=== PATIENT | female | born 1995 | race Caucasian/White ===

== ENCOUNTER 2018-12-12 01:16 | Emergency (ER) | payer SELFPAY ==
[2018-12-12] MEDS ORDERED: HYDROcodone/Acetaminophen 5/325 mg Tablet ONE (01:27)
--- NOTE | 2018-12-12 07:46 | RAD ---
Exam: XR Foot Rt 3 View STANDARD HISTORY: Right lower extremity pain. Patient was walking and fell off a step and heard a pop. Right foot pain. COMPARISON: None FINDINGS: There is a lucency seen at the base of the right fifth metatarsal with overlying subcutaneous soft ti ssue swelling suggesting a slightly fracture base of the right fifth metatarsal. The Lisfranc joint is normally aligned. No additional acute fracture, dislocation, or other acute osseous abnormality is identified. IMPRESSION: Fracture base of the right fifth metatarsal with overlying subcutaneous soft tissue swelling.
--- NOTE | 2018-12-12 07:48 | RAD ---
Exam: XR Ankle Rt 3 View STANDARD HISTORY: Right lower extremity pain. Patient was walking and fell off a step and heard a pop. COMPARISON: None FINDINGS: There is an transverse fracture involving the proximal base of the right fifth metatarsal with adjace nt subcutaneous soft tissue swelling. The ankle mortise is congruent. No additional acute fracture, dislocation, or other acute osseous abnormality is identified. IMPRESSION: Mildly fracture base of the right fifth metatarsal.
== END 2018-12-12 02:24 | disposition home or self-care (01) ==
LOC: ERS 01:16
DX: S92.351A Displaced fracture of fifth metatarsal bone, right foot, initial encounter for closed fracture (principal); F32.9 Major depressive disorder, single episode, unspecified; W22.8XXA Striking against or struck by other objects, initial encounter

== ENCOUNTER 2019-01-20 20:35 | Emergency (ER) | payer SELFPAY | END 2019-01-20 21:05 | disposition home or self-care (01) | LOC: ERS 20:35 | DX: K08.89 Other specified disorders of teeth and supporting structures (principal); F32.9 Major depressive disorder, single episode, unspecified; Z71.6 Tobacco abuse counseling | CPT/HCPCS: 99406 ==

== ENCOUNTER 2019-02-03 09:06 | Emergency (ER) | payer SELFPAY | END 2019-02-03 09:30 | disposition left against medical advice (07) | LOC: ERS 09:06 | DX: Z53.21 Procedure and treatment not carried out due to patient leaving prior to being seen by health care provider (principal) ==

== ENCOUNTER 2019-06-23 00:50 | Emergency (ER) | payer SELFPAY ==
[2019-06-23] MEDS ORDERED: Ketorolac Tromethamine 30 MG/ML VIAL ONE (04:36)
[2019-06-23] MEDS ORDERED: Dexamethasone 10 MG/ML VIAL ONE (04:56)
== END 2019-06-23 06:13 | disposition home or self-care (01) ==
LOC: ERS 00:50
DX: J02.0 Streptococcal pharyngitis (principal); F41.9 Anxiety disorder, unspecified; F32.9 Major depressive disorder, single episode, unspecified; F17.290 Nicotine dependence, other tobacco product, uncomplicated
CPT/HCPCS: 87430; 87804; 96372; 99283; J1100; J1885

== ENCOUNTER 2019-07-07 22:12 | Emergency (ER) | payer OTHER, SELFPAY ==
--- NOTE | 2019-07-07 22:57 | RAD ---
XR Wrist 3 Rt View STANDARD: 07/07/2019 10:35 PM CLINICAL INDICATION: Right wrist pain and injury COMPARISON: None. FINDINGS: Bones: There is a mildly angulated, mildly displaced small finger metacarpal neck-distal shaft fract ure. The distal fracture fragment is displaced palmarly one half shaft width with palmar angulation. Joints: Joints space is preserved.. Soft Tissue: Normal.. IMPRESSION: Small finger metacarpal fracture.
--- NOTE | 2019-07-07 22:58 | RAD ---
XR Hand Rt 3 View STANDARD: 07/07/2019 10:35 PM CLINICAL INDICATION: Right hand injury and pain COMPARISON: None. FINDINGS: Bones: There is an obliquely running fracture involving the small finger metacarpal neck with palmar angulation. The distal fracture fragment is displaced palmarly one half shaft width. There is soft tissue swelling surrounding the fracture site. No additional acute fracture seen involving the right hand. Joints: Joint spaces are preserved. Soft Tissue: Soft tissue swelling surrounding the fracture site IMPRESSION: Small finger metacarpal neck fracture.
[2019-07-07] MEDS ORDERED: HYDROcodone/Acetaminophen 5/325 mg Tablet ONE (23:50)
[2019-07-07] MEDS ORDERED: Bicillin LA 1.2 MILLION UNITS/2 ML SYRINGE ONE (23:51)
== END 2019-07-08 00:22 | disposition home or self-care (01) ==
LOC: ERS 22:12
DX: S62.336A Displaced fracture of neck of fifth metacarpal bone, right hand, initial encounter for closed fracture (principal); J02.0 Streptococcal pharyngitis; F41.9 Anxiety disorder, unspecified; F32.9 Major depressive disorder, single episode, unspecified; F17.290 Nicotine dependence, other tobacco product, uncomplicated; Z79.899 Other long term (current) drug therapy; X58.XXXA Exposure to other specified factors, initial encounter
CPT/HCPCS: 26600; 87430; 96372; J0561

== ENCOUNTER 2019-11-01 21:26 | Emergency (ER) | payer SELFPAY ==
[2019-11-01] MEDS ORDERED: Adacel (T-DAP) 0.5 ML SYRINGE ONE (22:25)
[2019-11-01] MEDS ORDERED: HYDROcodone/Acetaminophen 5/325 mg Tablet ONE (22:25)
[2019-11-01] MEDS ORDERED: Ondansetron ODT 4 MG TAB ONE (23:40)
[2019-11-01] MEDS ORDERED: Bacitracin 1 PK ONE (23:40)
--- NOTE | 2019-11-02 00:22 | RAD ---
Exam: XR Finger(s) Rt Min 2 View HISTORY: Trauma. COMPARISON: None FINDINGS: There is evidence of a remote healed fracture involving the metacarpal right small finger. No acute fracture, dislocation, or other acute osseous abnormality is identified. IMPRESSION: No acute osseous abnormality is identified. Remote healed fracture metacarpal right small finger.
== END 2019-11-01 23:47 | disposition home or self-care (01) ==
LOC: ERS 21:26
DX: S61.316A Laceration without foreign body of right little finger with damage to nail, initial encounter (principal); F41.9 Anxiety disorder, unspecified; F32.9 Major depressive disorder, single episode, unspecified; J45.909 Unspecified asthma, uncomplicated; W22.8XXA Striking against or struck by other objects, initial encounter
CPT/HCPCS: 90471; 90715; Q0162

== ENCOUNTER 2019-11-28 12:19 | Emergency (ER) | payer SELFPAY ==
[2019-11-28] MEDS ORDERED: Ondansetron PF 4 MG/2 ML Vial ONE (12:55)
[2019-11-28] MEDS ORDERED: Morphine 4 MG/ML VIAL ONE (12:55)
[2019-11-28 13:07] LABS: #Basophils 0.1 thou/uL (0.0-0.2); #Eosinphils 0.1 thou/uL (0.0-0.7); #Lymphocytes 2.3 thou/uL (1.20-3.40); #Monocytes 0.5 thou/uL (0.11-0.59); #Neutrophils 5.6 thou/uL (1.40-6.50); %Basophils 0.8 % (0.0-1.0); %Eosinophils 0.8 % (0.0-10.0); %Lymphocytes 26.3 % (21.0-51.0); %Monocytes 6.3 % (0.0-10.0); %Neutrophils 65.7 % (42.0-75.0); Hemoglobin 14.3 g/dL (12.0-16.0); Mean Corpuscular HGB CONC 33.4 g/dL (32.0-36.0); Mean Corpuscular Hemoglobin 29.3 pg (27.0-31.0); Mean Corpuscular Volume 87.6 fL (78.0-98.0); Mean Platelet Volume 7.8 fL (7.4-10.4); Platelet Count 311 thou/uL (130-400); White Blood Cell (WBC) Count 8.6 thou/uL (4.8-10.8)
[2019-11-28 13:12] LABS: BHCG - Serum Negative (NEGATIVE); Pregs Control Background? CLEAR/WHITE (CLR/WHITE); Pregs Control Bar Appear? YES (CONTROL BAR)
[2019-11-28 13:28] LABS: Bacteria/HPF None Seen HPF (None Seen); Bilirubin Negative (Negative); Blood, Urine 3+ (Negative); Clarity Clear (Clear); Glucose, Urine (Dipstick) Normal (Negative); Ketone, Urine Negative (Negative); Leukocyte Negative Leu/uL (Negative); Nitrite Negative (Negative); Protein, Urine (Dipstick) 20 mg/dL (Neg-Trace); RBC/HPF 21-50 HPF (0-3); Squamous Epithelial 0-3 HPF (0-3); Urobilinogen Normal mg/dL (Less than 2); WBC/HPF 0-3 HPF (0-3)
--- NOTE | 2019-11-28 13:54 | ULT ---
ULTRASOUND PELVIC ULTRASOUND TRANSVAGINAL DOPPLER DUPLEX: DATE: 11/28/2019 HISTORY: 24-year-old female with pelvic pain TECHNIQUE: Transabdominal transducer and endovaginal transducer used to visualize intrapelvic contents with bee scale, color-flow, and spectral analysis. FINDINGS: Uterus: 9 x 4 x 6 cm Endometrial stripe:0.8 cm (8 mm). Right ovary: 3.5 x 2 x 2 cm Left ovary:1.5 x 2 x 1 cm. Uterine leiomyoma (fibroid):2 x 1.5 x 1 cm subserosal hypoechoic lesion left posterior uterine corpus . Blood flow in ovaries:Bilaterally demonstrated Ovarian cyst:None Free fluid in the cul-de-sac:None IMPRESSION: 1) small uterine fibroid. 2) otherwise negative
[2019-11-28] MEDS ORDERED: Ketorolac Tromethamine 30 MG/ML VIAL ONE (14:09)
[2019-11-28 14:25] LABS: ALT (SGPT) 34 U/L (8-55); AST (SGOT) 27 U/L (5-34); Albumin 4.4 g/dL (3.5-5.0); Alkaline Phosphatase 70 U/L (40-110); Anion Gap 14 mmol/L (10-20); BUN (Urea Nitrogen) 13 mg/dL (7.0-18.7); Bilirubin, Total 0.5 mg/dL (0.2-1.2); Calc. Creatinine Clearance 0 mL/min (70-130); Calcium 9.1 mg/dL (7.8-10.44); Carbon Dioxide 20 mmol/L (22-29); Chloride 109 mmol/L (98-107); Estimated GFR-MDRD 89; Glucose 71 mg/dL (70-105); Potassium 4.1 mmol/L (3.5-5.1); Protein, Total 7.4 g/dL (6.0-8.3); Sodium 139 mmol/L (136-145)
--- NOTE | 2019-11-28 14:47 | CT ---
CT of abdomen and pelvis: 11/28/2019 COMPARISON: None HISTORY: Lower abdominal pain TECHNIQUE: Axial CT imaging at 5 mm intervals from lung bases through pubic symphysis without contras t. Coronal reformatted imaging obtained. FINDINGS: Lack of contrast media limits assessment of the viscera, bowel, vascular structures, and fo r lymphadenopathy. The imaged lung bases are unremarkable. No free intraperitoneal air or fluid. The spleen, liver, gall bladder, pancreas, and adrenal glands appear unremarkable. No nephrolithiasis or evidence of obstructive uropathy appreciated on either side. No evidence for bowel inflammatory change or obstruc tion. The appendix appears unremarkable. No acute osseous abnormality. IMPRESSION: No nephrolithiasis or evidence of obstructive uropathy.
== END 2019-11-28 17:14 | disposition home or self-care (01) ==
LOC: ERS 12:19
DX: D25.9 Leiomyoma of uterus, unspecified (principal); E28.2 Polycystic ovarian syndrome; J45.909 Unspecified asthma, uncomplicated; F41.9 Anxiety disorder, unspecified; F32.9 Major depressive disorder, single episode, unspecified; F17.200 Nicotine dependence, unspecified, uncomplicated; Z79.899 Other long term (current) drug therapy
CPT/HCPCS: 36415; 74176; 76856; 80053; 81003; 81015; 84703; 85025; 96374; 96375; J1885; J2270; J2405

== ENCOUNTER 2020-01-06 10:00 | Emergency (ER) | payer SELFPAY | END 2020-01-06 10:56 | disposition home or self-care (01) | LOC: ERS 10:00 | DX: Z20.7 Contact with and (suspected) exposure to pediculosis, acariasis and other infestations (principal); J45.909 Unspecified asthma, uncomplicated; F41.9 Anxiety disorder, unspecified; F32.9 Major depressive disorder, single episode, unspecified; F17.200 Nicotine dependence, unspecified, uncomplicated; Z79.899 Other long term (current) drug therapy | CPT/HCPCS: 99406 ==

== ENCOUNTER 2020-01-13 10:28 | Emergency (ER) | payer SELFPAY | END 2020-01-13 13:04 | disposition home or self-care (01) | LOC: ERS 10:28 | DX: Z20.7 Contact with and (suspected) exposure to pediculosis, acariasis and other infestations (principal); F41.9 Anxiety disorder, unspecified; F32.9 Major depressive disorder, single episode, unspecified; J45.909 Unspecified asthma, uncomplicated; F17.200 Nicotine dependence, unspecified, uncomplicated; Z79.899 Other long term (current) drug therapy | CPT/HCPCS: 99281 ==

== ENCOUNTER 2020-03-23 18:40 | Emergency (ER) | payer SELFPAY ==
[2020-03-23 20:11] LABS: #Eosinphils 0.2 thou/uL (0.0-0.7); #Lymphocytes 2.4 thou/uL (1.20-3.40); #Monocytes 0.6 thou/uL (0.11-0.59); %Basophils 0.4 % (0.0-1.0); %Eosinophils 1.8 % (0.0-10.0); %Lymphocytes 23.4 % (21.0-51.0); %Monocytes 5.7 % (0.0-10.0); %Neutrophils 68.7 % (42.0-75.0); Hemoglobin 13.9 g/dL (12.0-16.0); Mean Corpuscular HGB CONC 32.3 g/dL (32.0-36.0); Mean Corpuscular Hemoglobin 28.1 pg (27.0-31.0); Mean Platelet Volume 7.2 fL (7.4-10.4); Platelet Count 392 thou/uL (130-400); RBC Distribution Width 11.7 % (11.5-14.5); Red Blood Cell (RBC) Count 4.94 mill/uL (4.20-5.40); White Blood Cell (WBC) Count 10.2 thou/uL (4.8-10.8)
[2020-03-23 20:32] LABS: Anion Gap 14 mmol/L (10-20); BUN (Urea Nitrogen) 16 mg/dL (7.0-18.7); Calc. Creatinine Clearance 0 mL/min (70-130); Calcium 9.5 mg/dL (7.8-10.44); Carbon Dioxide 26 mmol/L (22-29); Chloride 106 mmol/L (98-107); Estimated GFR-MDRD 88; Glucose 71 mg/dL (70-105); Potassium 3.9 mmol/L (3.5-5.1); Sodium 142 mmol/L (136-145)
--- NOTE | 2020-03-23 20:33 | RAD ---
RADIOGRAPH CHEST 1 VIEW: DATE: 03-23-2020 HISTORY: 24-year-old female with dyspnea, cough, and chest pain with chest congestion. FINDINGS: The visualized lung garcia are clear. The cardiomediastinal silhouette and hilar shadows are normal. The lateral costophrenic angles are sharp. The osseous structures appear normal. There is no pneu mothorax. IMPRESSION: Negative. [email or web address] POS: [id number]
[2020-03-24 07:39] LABS: SARS-CoV-2 MS2 Positive; SARS-CoV-2 N Gene Negative; SARS-CoV-2 S Gene Negative; SARS-CoV-2 by NAA Not Detected (NotDetected); SARS-CoV-2 orf1ab Negative
== END 2020-03-23 21:19 | disposition home or self-care (01) ==
LOC: ERS 18:40
DX: J06.9 Acute upper respiratory infection, unspecified (principal); N93.9 Abnormal uterine and vaginal bleeding, unspecified; Z20.828 Contact with and (suspected) exposure to other viral communicable diseases; J45.909 Unspecified asthma, uncomplicated; F32.9 Major depressive disorder, single episode, unspecified; F41.9 Anxiety disorder, unspecified; F17.200 Nicotine dependence, unspecified, uncomplicated
CPT/HCPCS: 36415; 71045; 80048; 85025; 87635; 87804; U0003

== ENCOUNTER 2020-05-11 06:21 | Emergency (ER) | payer SELFPAY ==
[2020-05-11 06:52] LABS: Bacteria/HPF None Seen HPF (None Seen); Bilirubin Negative (Negative); Blood, Urine Trace (Negative); Clarity Turbid (Clear); Glucose, Urine (Dipstick) Normal (Negative); Ketone, Urine Negative (Negative); Leukocyte 500 Leu/uL (Negative); Nitrite Negative (Negative); Protein, Urine (Dipstick) 10 mg/dL (Neg-Trace); RBC/HPF 0-3 HPF (0-3); Specific Gravity, Urine 1.019 (1.002-1.036); Squamous Epithelial 0-3 HPF (0-3); Urobilinogen Normal mg/dL (Less than 2); WBC/HPF Greater than 50 HPF (0-3)
[2020-05-11 06:54] LABS: Pregnancy Test - Urine (BHCG) Negative (Negative); Pregu Control Background? CLEAR/WHITE (CLR/WHITE); Pregu Control Bar Appear? YES (CONTROL BAR); Specific Gravity 1.019 (1.002-1.036)
== END 2020-05-11 09:28 | disposition home or self-care (01) ==
LOC: ERS 06:21
DX: N39.0 Urinary tract infection, site not specified (principal); J45.909 Unspecified asthma, uncomplicated; F17.210 Nicotine dependence, cigarettes, uncomplicated
CPT/HCPCS: 81003; 81015; 81025; 99283

== ENCOUNTER 2020-05-26 20:47 | Emergency (ER) | payer SELFPAY ==
[2020-05-26] MEDS ORDERED: Ketorolac Tromethamine 30 MG/ML VIAL ONE (21:11)
[2020-05-26 21:23] LABS: Bacteria/HPF None Seen HPF (None Seen); Bilirubin Negative (Negative); Blood, Urine Trace (Negative); Clarity Clear (Clear); Glucose, Urine (Dipstick) Normal (Negative); Ketone, Urine Negative (Negative); Leukocyte Negative Leu/uL (Negative); Nitrite Negative (Negative); Protein, Urine (Dipstick) Negative (Neg-Trace); RBC/HPF 0-3 HPF (0-3); Specific Gravity, Urine 1.024 (1.002-1.036); Squamous Epithelial 0-3 HPF (0-3); Urobilinogen Normal mg/dL (Less than 2); WBC/HPF 0-3 HPF (0-3)
[2020-05-26 21:24] LABS: Pregnancy Test - Urine (BHCG) Negative (Negative); Pregu Control Background? CLEAR/WHITE (CLR/WHITE); Pregu Control Bar Appear? YES (CONTROL BAR); Specific Gravity 1.024 (1.002-1.036)
--- NOTE | 2020-05-26 21:27 | RAD ---
RIGHT FOOT: 05/26/20 Three views. HISTORY: Injury with pain. Comparison made to right foot films of 12/12/18. Fracture at the base of the fifth metatarsal was noted on that exam. FINDINGS: Tarsals appear intact. The metatarsals are intact. Old fracture involving base of fifth metatarsal is noted. No acute fracture identified. IMPRESSION: No acute findings. POS: AGW
--- NOTE | 2020-05-27 07:09 | ULT ---
PELVIC ULTRASOUND: Date: 05/26/2020 INDICATION: Pelvic pain. Vaginal bleeding. FINDINGS: Uterus has a normal sonographic appearance. Endometrial stripe is within normal range, measured at 4. 0 mm. Both ovaries are identified and appear unremarkable. Color Doppler and spectral analysis demons trates blood flow to both ovaries. No free fluid. IMPRESSION: Unremarkable pelvic ultrasound. POS: AGW
== END 2020-05-26 22:25 | disposition home or self-care (01) ==
LOC: ERS 20:47
DX: N80.9 Endometriosis, unspecified (principal); S80.11XA Contusion of right lower leg, initial encounter; J45.909 Unspecified asthma, uncomplicated; F17.210 Nicotine dependence, cigarettes, uncomplicated; W10.9XXA Fall (on) (from) unspecified stairs and steps, initial encounter
CPT/HCPCS: 76856; 81003; 81015; 81025; 93976; 96372; J1885

== ENCOUNTER 2020-06-24 17:19 | Emergency (ER) | payer SELFPAY ==
[2020-06-24 18:23] LABS: Bilirubin Negative (Negative); Blood, Urine Negative (Negative); Clarity Clear (Clear); Glucose, Urine (Dipstick) Normal (Negative); Ketone, Urine Negative (Negative); Leukocyte Negative Leu/uL (Negative); Nitrite Negative (Negative); Protein, Urine (Dipstick) Negative (Neg-Trace); Specific Gravity, Urine 1.022 (1.002-1.036); Urobilinogen Normal mg/dL (Less than 2)
== END 2020-06-24 19:05 | disposition home or self-care (01) ==
LOC: ERS 17:19
DX: M54.5 Low back pain (principal); J45.909 Unspecified asthma, uncomplicated; F17.290 Nicotine dependence, other tobacco product, uncomplicated
CPT/HCPCS: 81003; 99283

== ENCOUNTER 2020-09-15 21:09 | Emergency (ER) | payer MEDICAID, SELFPAY | END 2020-09-15 22:00 | disposition home or self-care (01) | LOC: ERS 21:09 | DX: B07.0 Plantar wart (principal); J45.909 Unspecified asthma, uncomplicated; F17.290 Nicotine dependence, other tobacco product, uncomplicated | CPT/HCPCS: 99283 ==

== ENCOUNTER 2020-10-07 21:13 | Emergency (ER) | payer OTHER | END 2020-10-08 01:42 | disposition home or self-care (01) | LOC: ERS 21:13 | DX: O9A.212 Injury, poisoning and certain other consequences of external causes complicating pregnancy, second trimester (principal); S90.31XA Contusion of right foot, initial encounter; O99.332 Smoking (tobacco) complicating pregnancy, second trimester; F17.290 Nicotine dependence, other tobacco product, uncomplicated; V89.2XXA Person injured in unspecified motor-vehicle accident, traffic, initial encounter | CPT/HCPCS: 36415; 86900; 86901 ==

== ENCOUNTER 2020-10-13 07:46 | Outpatient (CLI) | payer OTHER | END 2020-10-13 07:47 | disposition home or self-care (01) | LOC: BICULT 07:46 | PROVIDERS: ATTEND Family Medicine | DX: O09.892 Supervision of other high risk pregnancies, second trimester (principal); Z3A.20 20 weeks gestation of pregnancy | CPT/HCPCS: 76805 ==

== ENCOUNTER 2020-10-24 21:31 | Emergency (ER) | payer OTHER ==
[2020-10-25 00:48] LABS: SARS-CoV-2 NAA Rapid Test Not Detected (NotDetected)
== END 2020-10-25 01:09 | disposition home or self-care (01) ==
LOC: ERS 21:31
DX: O99.891 Other specified diseases and conditions complicating pregnancy (principal); R05 Cough; R09.89 Other specified symptoms and signs involving the circulatory and respiratory systems; Z20.822 Contact with and (suspected) exposure to COVID-19; O99.332 Smoking (tobacco) complicating pregnancy, second trimester; F17.290 Nicotine dependence, other tobacco product, uncomplicated; O99.512 Diseases of the respiratory system complicating pregnancy, second trimester; J45.909 Unspecified asthma, uncomplicated; Z3A.22 22 weeks gestation of pregnancy
CPT/HCPCS: 87807; 99283; U0002; U0005

== ENCOUNTER 2022-04-09 15:33 | Emergency (ER) | payer SELFPAY | END 2022-04-09 19:00 | disposition home or self-care (01) | LOC: ERS 15:33 | DX: U07.1 COVID-19 (principal); Z87.891 Personal history of nicotine dependence | CPT/HCPCS: 71045; 93005 ==

== ENCOUNTER 2023-04-09 20:28 | Emergency (ER) | payer OTHER ==
[2023-04-09 21:46] LABS: Bilirubin Negative (Negative); Blood, Urine Negative (Negative); CAUTI Indications for Culture Pelvic or flank pain; Clarity Clear (Clear); Glucose, Urine (Dipstick) Normal (Negative); Ketone, Urine Negative (Negative); Leukocyte Negative Leu/uL (Negative); Nitrite Negative (Negative); Protein, Urine (Dipstick) Negative (Neg-Trace); RBC/HPF 0-3 HPF (0-3); Squamous Epithelial None Seen HPF (0-3); Urobilinogen Normal mg/dL (Less than 2); WBC/HPF 0-3 HPF (0-3)
[2023-04-09 21:52] LABS: Bacteria/HPF 1+ HPF (None Seen)
[2023-04-09 21:53] LABS: Urine Culture Reflex No No
[2023-04-09] MEDS ORDERED: Azithromycin 250 MG TAB ONE ×2 (22:27→22:34)
[2023-04-11 11:13] LABS: Chlamydia by PCR, Vaginal Swab Not Detected (NotDetected); GC by PCR, Vaginal Swab Not Detected (NotDetected)
== END 2023-04-09 22:38 | disposition home or self-care (01) ==
LOC: ERS 20:28
DX: O99.891 Other specified diseases and conditions complicating pregnancy (principal); R10.9 Unspecified abdominal pain; O99.331 Smoking (tobacco) complicating pregnancy, first trimester; F17.210 Nicotine dependence, cigarettes, uncomplicated; F17.290 Nicotine dependence, other tobacco product, uncomplicated; Z3A.12 12 weeks gestation of pregnancy
CPT/HCPCS: 81001; 87480; 87491; 87510; 87591; 87660; 96372; 99282

== ENCOUNTER 2024-04-21 09:06 | Emergency (ER) | payer OTHER | END 2024-04-21 10:07 | disposition home or self-care (01) | LOC: ERS 09:06 | DX: J02.9 Acute pharyngitis, unspecified (principal); F17.290 Nicotine dependence, other tobacco product, uncomplicated | CPT/HCPCS: 87081; 87428; 87430; 99283 ==